=== PATIENT | female | born 1975 | race Native Hawaiian/Other Pacific Islander ===

== ENCOUNTER 2020-05-13 08:55 | Outpatient (CLI) | payer OTHER | END 2020-05-13 19:46 | disposition home or self-care (01) | LOC: RAD 08:55 | PROVIDERS: ATTEND Nurse Practitioner Family | DX: M25.521 Pain in right elbow (principal) ==

== ENCOUNTER 2022-11-03 09:23 | Outpatient (CLI) | payer OTHER | END 2022-11-03 19:12 | disposition home or self-care (01) | LOC: CT 09:23 | PROVIDERS: ATTEND Internal Medicine | DX: R10.32 Left lower quadrant pain (principal) | CPT/HCPCS: Q9963 ==

== ENCOUNTER 2022-12-13 11:55 | Observation (INO) | payer OTHER ==
[2022-12-13] VITALS (8 sets, daily range): BP systolic 101–138; BP diastolic 64–86; TEMP 97.8–98.8; Ht 165.1 cm; Wt 59.0 kg
[~2022-12-13] VITALS: Ht 165.1 cm; Wt 59.0 kg
[2022-12-13 12:20] LABS: PLATELET COUNT 263 K/uL (152-353)
[2022-12-13 12:34] LABS: POTASSIUM 3.4 mmol/L (3.6-5.2); SODIUM 138 mmol/L (136-145)
[2022-12-13] MEDS ORDERED: TEMA30CA18 PO (16:42)
[2022-12-13] MEDS ORDERED: ALPR0.2566 PO (16:42)
[2022-12-13] MEDS ORDERED: ADDERALL XR20 MG PO (16:42)
[2022-12-13] MEDS ORDERED: HYDR25TA60 PO (16:43)
[2022-12-13] MEDS ORDERED: CITALOPRAM10 M1 PO (16:43)
[2022-12-14 03:30] VITALS: BP 109/70; TEMP 98
[2022-12-14 05:08] LABS: POTASSIUM 3.5 mmol/L (3.6-5.2)
[2022-12-14 07:52] VITALS: BP 100/62; TEMP 98.1
== END 2022-12-14 09:05 | disposition home or self-care (01) ==
LOC: ED 11:55 → MED/SURG 12:55
PROVIDERS: Family Medicine; ADMIT Nurse Practitioner Family; ATTEND Internal Medicine Endocrinology, Diabetes & Metabolism
DX: R07.89 Other chest pain (principal); R00.2 Palpitations; E87.6 Hypokalemia; F90.9 Attention-deficit hyperactivity disorder, unspecified type; G47.00 Insomnia, unspecified; F41.9 Anxiety disorder, unspecified
CPT/HCPCS: 36415; 80048; 80053; 83735; 84484; 85027; 93005; 99221; 99284; G0378

== ENCOUNTER 2023-01-16 10:17 | Outpatient (CLI) | payer OTHER ==
[~2023-01-16 10:17] MED LIST: ADDERALL XR20 MG PO; ALPR0.2566 PO; CITALOPRAM10 M1 PO; HYDR25TA60 PO; TEMA30CA18 PO
== END 2023-01-16 19:01 | disposition home or self-care (01) ==
LOC: LABW 10:17
PROVIDERS: ATTEND Specialist
DX: R00.2 Palpitations (principal); R07.89 Other chest pain; R94.31 Abnormal electrocardiogram [ECG] [EKG]
CPT/HCPCS: 36415; 84439; 84443; 84481

== ENCOUNTER 2023-04-30 14:17 | Outpatient (CLI) | payer OTHER | END 2023-04-30 19:46 | disposition home or self-care (01) | LOC: MRI 14:17 | PROVIDERS: ATTEND Nurse Practitioner Family | DX: M25.521 Pain in right elbow (principal); R29.898 Other symptoms and signs involving the musculoskeletal system; M25.50 Pain in unspecified joint ==